=== PATIENT | female | born 1970 | race Caucasian/White ===

== ENCOUNTER 2017-09-28 18:48 | Observation (INO) | payer OTHER ==
[~2017-09-28] VITALS: Ht 152.4 cm; Wt 73.5 kg
[~2017-09-28 18:48] MED LIST: AMBIEN5 MG PO; ASPIRIN EC325 MG PO; ATORVASTATIN CA20 MG PO; CIPRO500 MG PO; CITALOPRAM HBR20 MG PO; NORCO 5/3251 TABLET PO; PEN-VEE K,VEET500 MG PO
[2017-09-28 20:56] LABS: ALBUMIN 4.2 g/dL (3.2-4.8); CHLORIDE 104 mEq/L (99-109); POTASSIUM 3.5 mEq/L (3.7-5.4); SODIUM 135 mEq/L (136-147)
[2017-09-28 20:58] LABS: GLUCOSE 84 mg/dL (70-99); TOTAL PROTEIN 7.2 g/dL (6.4-8.3)
[2017-09-28 21:00] LABS: TOTAL BILIRUBIN 0.2 mg/dL (0.0-1.0)
[2017-09-28 21:02] LABS: ALKALINE PHOSPHATASE 74 IU/L (3-129); CREATININE 0.8 mg/dL (0.6-1.3); GFR ESTIMATE (CALCULATED) > 59 mL/min/
[2017-09-28 21:03] LABS: UREA NITROGEN (BUN) 9 mg/dL (9-23)
[2017-09-28 21:04] LABS: AST (GOT) 14 IU/L (2-34)
[2017-09-28 21:05] LABS: ALT (GPT) 14 IU/L (3-49); LIPASE 14 U/L (1.0-51.0)
[2017-09-28 21:14] LABS: TROP-I INTERPRETATION NEGATIVE; TROPONIN-I < 0.01 ng/mL (0.0-0.30)
[2017-09-28 21:24] LABS: HEMATOCRIT 39.8 % (36.0-46.0); HEMOGLOBIN 13.6 G/DL (11.9-15.5); MCH 28.8 PG (29.0-34.0); MCHC 34.2 G/DL (30.0-36.0); MCV 84.1 FL (83-99); PLATELET COUNT 321 K/uL (156-360); RBC DIS.WIDTH-CV 13.7 % (11.8-14.6); RBC DIS.WIDTH-SD 42.5 % (39-53); RED BLOOD COUNT 4.73 M/uL (3.80-5.20); WHITE BLOOD COUNT 10.5 K/uL (4.1-10.2)
[2017-09-29] MEDS ORDERED: OMEPRAZOLE20 MG PO (00:40)
[2017-09-29] MEDS ORDERED: VITAMIN D35000 UNIT PO (00:40)
[2017-09-29 02:57] VITALS: BP 134/83
[2017-09-29 03:39] LABS: TROP-I INTERPRETATION NEGATIVE; TROPONIN-I < 0.01 ng/mL (0.0-0.30)
[2017-09-29 04:53] LABS: HDL CHOLESTEROL 40 MG/DL (Desirable>=50); LDL CHOLESTEROL 149 mg/dL (Desirable<100); NON-HDL CHOLESTEROL 186 mg/dL (Desirable<160); TOTAL CHOLESTEROL 226 mg/dL (Desirable<200); TRIGLYCERIDES 184 MG/DL (Normal: <150)
[2017-09-29 08:01] VITALS: BP 111/68
[2017-09-29 09:32] LABS: TROP-I INTERPRETATION NEGATIVE; TROPONIN-I < 0.01 ng/mL (0.0-0.30)
[2017-09-29 10:23] LABS: HEMOGLOBIN A1c (GLYCOHEMOGLOB) 5.4 % (Below 5.7)
[2017-09-29 12:16] VITALS: BP 106/70
[2017-09-29] MEDS ORDERED: SIMVASTATIN20 MG PO (12:36)
[2017-09-29] MEDS ORDERED: ASPIRIN81 M2 PO (12:36)
== END 2017-09-29 13:10 | disposition home or self-care (01) ==
LOC: EME 18:48 → EDOF 09-29 00:33 → ENRESERV 09-29 00:43 → 4SOUTH 09-29 02:45
PROVIDERS: Emergency Medicine; Hospitalist; Physician Assistant Medical
DX: R07.89 Other chest pain (principal); R94.31 Abnormal electrocardiogram [ECG] [EKG]; Z82.49 Family history of ischemic heart disease and other diseases of the circulatory system; G89.29 Other chronic pain; E78.5 Hyperlipidemia, unspecified; Z82.3 Family history of stroke; E66.9 Obesity, unspecified; H90.5 Unspecified sensorineural hearing loss; Z68.31 Body mass index [BMI] 31.0-31.9, adult; M79.7 Fibromyalgia; M54.5 Low back pain; F32.9 Major depressive disorder, single episode, unspecified
CPT/HCPCS: 71045; 71275; 80053; 80061; 82948; 83036; 83690; 84484; 85027; 86850; 86900; 86901; 93005; 99281; 99285; G0378; J0780; J1200; J1650; J1815; J1885; J3010